=== PATIENT | female | born 1995 | race African-American/Black ===

== ENCOUNTER 2020-05-30 16:16 | Observation (INO) | payer OTHER, SELFPAY ==
[2020-05-30] VITALS (8 sets, daily range): BP systolic 99–138; BP diastolic 51–79; PULSE 71–96; RESP 16–18; TEMP 37; O2SAT 99–100; BMI 32.1
--- NOTE | 2020-05-30 16:29 | ED.NAVMDI ---
HPI - Nausea/Vomiting/Diarrhea General Chief complaint: Nausea/Vomiting/Diarrhea Stated complaint: n/v, 9 weeks Time Seen by Provider: 05/30/20 16:29 Source: patient and family Mode of arrival: ambulatory Limitations: no limitations History of Present Illness HPI Narrative: Patient is a 24-year-old G2, P1 currently 9 weeks who presents for evaluation nausea and vomiting. Patient reports that she had hyperemesis with her first throughout all of , and states she has been unable to tolerate oral intake for over a week. She reports headache, feeling weak and nauseated. She denies abdominal pain, vaginal bleeding, loss of fluids. No vaginal or abdominal cramping. No back pain, no dysuria or hematuria. Patient is supposed to see Dr. Allan tomorrow. She has not established care for this yet. Related Data Allergies Allergy/AdvReac Type Severity Reaction Status Date / Time No Known Allergies Allergy Unverified 04/27/20 13:21 Review of Systems Review of Systems: Narrative: CONSTITUTIONAL: Denies fever, chills, or sweats. EYES: Denies visual changes, redness, or discharge. ENT: Denies rhinorrhea, congestion, sore throat, or otalgia. CARDIOVASCULAR: Denies chest pain, palpitations, or edema. RESPIRATORY: Denies cough or dyspnea. GASTROINTESTINAL: Denies abdominal pain, reports nausea and vomiting, denies diarrhea GENITOURINARY: Denies dysuria or hematuria. SKIN: Denies rash or itching. MUSCULOSKELETAL: Denies back pain, joint pain, or myalgia. NEUROLOGIC: Denies headache, numbness, reports feeling diffusely weak PMFSH Past Medical History Medical History (Updated 05/30/20 @ 18:49 by Raquel Oneal MD) Nausea and vomiting during Surgical History Surgical History (Updated 05/30/20 @ 16:58 by aRquel Oneal MD) No pertinent past surgical history Social History Social History (Updated 05/30/20 @ 16:58 by Raquel Oneal MD) Smoking status: Never smoker Alcohol intake: never Substance use: never Living arrangements: with family Gender identity (if verbalized by the patient): Female Exam Narrative: Exam Narrative: GENERAL: Awake, alert, conversant HEAD: Normocephalic, atraumatic. EYES: PERRLA and EOMI. ENT: Nares clear, no rhinorrhea or epistaxis. Mucous membranes moist. NECK: Supple. CHEST: No respiratory distress, breathing even and non labored HEART: Regular rate, sinus rhythm ABDOMEN:Non distended, non tender EXTREMITIES: Normal range of motion. No edema. SKIN: Warm, dry, no rash. NEURO:No focal deficits. Alert and oriented x3 Course Vital Signs Vital signs: Vital Signs Temperature 37.0 C 05/30/20 16:22 Pulse Rate 96 05/30/20 16:22 Respiratory Rate 16 05/30/20 16:22 Blood Pressure 138/79 05/30/20 16:22 Pulse Oximetry 100 05/30/20 16:22 Temperature 37.0 C 05/30/20 16:22 Pulse Rate 96 05/30/20 16:22 Respiratory Rate 16 05/30/20 16:22 Blood Pressure 138/79 05/30/20 16:22 Pulse Oximetry 100 05/30/20 16:22 MDM - Nausea/Vomiting/Diarrhea MDM Narrative Medical decision making narrative: Patient presented for evaluation of nausea and vomiting in first trimester . Patient states she did experience hyperemesis throughout her second . The time of initial assessment, ABCs are intact and vital signs are stable. Patient is not having any pain, vaginal bleeding or loss of fluids. Bedside ultrasound demonstrated heart rate of 167. Vickery-rump length measuring 9 weeks 4 days. IV access obtained and labs are drawn. Patient was given IV fluids as well as IV dextrose and saline, Pepcid, Benadryl and Reglan. Patient continued to have nausea and vomiting and then was given Zofran. Patient labs notable for hypokalemia, mild transaminitis, mild elevation in bilirubin all which can be seen in the setting of a dehydrated state. Patient has what looks like asymptomatic bacteriuria on her urinaly
[2020-05-30] MEDS: diphenhydrAMINE HCl INJ 50 MG/ML VIAL 25 MG IV PUSH (16:50)
[2020-05-30] MEDS: SODIUM CHLORIDE 0.9% IV 1,000 ML 999 ML IV CONT (16:50)
[2020-05-30] MEDS: METOCLOPRAMIDE HCL INJ 10 MG/2 ML VIAL IV PUSH (16:50)
[2020-05-30 16:56] LABS: Basophils Percent Auto 0.3 % (0.2-1.2); Eosinophils Absolute Auto 0.1 K/mm3 (0-0.3); Eosinophils Percent Auto 0.9 % (0-4.4); Hematocrit 40.1 % (37.0-47.0); Hemoglobin 14.5 g/dL (12.0-15.0); Immature Granulocyte Absolute 0.01 K/mm3 (0.00-0.031); Immature Granulocyte Percent A 0.1 % (0-0.5); Lymphocytes Absolute Auto 1.53 K/mm3 (0.9-3.2); Lymphocytes Percent Auto 22.2 % (18.3-44.2); Mean Corpuscular HGB Conc 36.2 g/dl (32-36); Mean Corpuscular Hemoglobin 30.7 pg (26-34); Mean Corpuscular Volume 84.8 fl (80-100); Mean Platelet Volume 10.1 fl (7.4-10.4); Monocytes Absolute Auto 0.6 K/mm3 (0.1-0.6); Monocytes Percent Auto 8.6 % (2.6-8.5); Neutrophils Absolute Auto 4.7 K/mm3 (1.3-6.7); Neutrophils Percent Auto 67.9 % (45.5-73.1); Platelet Count Result 251 k/mm3 (150-375); Red Blood Count 4.73 M/mm3 (4.2-5.4); White Blood Count 6.9 K/mm3 (4.5-10.0)
[2020-05-30 17:01] LABS: Add Urine Microscopic? YES; Appearance Urine Clear (Clear); Bacteria Urine 3+ /hpf; Bilirubin Urine 1+ (Negative); Blood Urine Negative (Negative); Color Urine Amber (Yellow); Glucose Urine UA Negative (Negative); Ketones Urine 1+ mg/dL (Negative); Leukocyte Esterase Ur Trace LEU/UL (Negative); Mucus Urine Few /lpf; Nitrate Urine Negative (Negative); Protein Urine 1+ mg/dL (Negative); RBC Urine 0-2 /hpf (0-2); Specific Grav Ur 1.025 (1.001-1.035); Squamous Epithelial Cell Urine Few /hpf (Few)
[2020-05-30 17:07] LABS: Alanine Aminotransferase 48 U/L (4-35); Albumin Level 4.6 g/dL (3.5-5.1); Alkaline Phosphatase 51 U/L (38-126); Anion Gap 12 mmol/L (8-16); Aspartate Amino Transferase 41 U/L (14-36); Bilirubin,Total 1.7 mg/dL (0.2-1.3); Blood Urea Nitrogen 7 mg/dL (7-17); Calcium 9.8 mg/dL (8.4-10.2); Carbon Dioxide 25 mmol/L (22-30); Chloride 98 mmol/L (98-107); Estimated CRCL calculation 137 ml/min; Estimated Glomerular Filt Rate > 60; Glucose 94 mg/dL (65-105); Lipase 136 U/L (23-300); Sodium 135 mmol/L (137-145)
[2020-05-30] MEDS: DEXTROSE 5%/0.45% SOD CHL 1,000 ML 100 ML IV CONT (17:07)
[2020-05-30] MEDS: FAMOTIDINE 20 MG/2 ML VIAL IV PUSH (17:37)
[2020-05-30] MEDS: POTASSIUM CHLORIDE 20 MEQ PACKET (FOR LIQUID) 40 MEQ PO (17:59)
[2020-05-30] MEDS: ONDANSETRON INJ 4 MG/2 ML VIAL IV PUSH (18:24)
[2020-05-30] MEDS: DEXTROSE 5%/LACTATED RINGERS 1,000 ML 125 ML IV CONT (21:11)
[2020-05-30 21:23] LABS: Add Urine Microscopic? YES; Appearance Urine Cloudy (Clear); Bacteria Urine 2+ /hpf; Bilirubin Urine Negative (Negative); Blood Urine Negative (Negative); Color Urine Yellow (Yellow); Glucose Urine UA 3+ mg/dL (Negative); Ketones Urine Negative (Negative); Leukocyte Esterase Ur Negative LEU/UL (NEGATIVE); Nitrate Urine Negative (Negative); Protein Urine Negative (Negative); RBC Urine 0-2 /hpf (0-2); Specific Grav Ur 1.008 (1.001-1.035); Squamous Epithelial Cell Urine Occasional /hpf (Few); Urobilinogen Urine Negative mg/dL (<2.0); WBC Urine 0-3 /hpf (0-3)
--- NOTE | 2020-05-30 21:45 | OBADM ---
This patient, Zeina Hayes, admitted to the OB room OB Post 116 for observation. Patient/family oriented to hospital policies and general routines including ID bracelet, bed and alarms, visiting hours, pain management, procedures, bathroom and other care routines, personal items, smoking policy, room service/diet, and visiting hours. Patient/Family are encouraged to report perceived risks to care and to ask questions if they do not understand what they are told or what they should do.
[2020-05-30] MEDS: PROMETHAZINE HCL 25 MG/ML AMPUL IM (23:50)
[2020-05-31] MEDS: DEXTROSE 5%/LACTATED RINGERS 1,000 ML 125 ML IV CONT ×3 (05:07→20:58)
[2020-05-31 05:09] VITALS: BP 86/49; PULSE 71
[2020-05-31 05:10] VITALS: BP 105/63; PULSE 64
[2020-05-31] MEDS: PROMETHAZINE HCL 25 MG/ML AMPUL IM ×2 (07:12→14:42)
--- NOTE | 2020-05-31 10:38 | PC.NURSE ---
1035--Pt. has eaten 1/2 piece of toast and states she is feeling okay right now.
--- NOTE | 2020-05-31 13:41 | PM.IMHP ---
H&P: HPI History of Present Illness Date/Time: 05/31/20 13:41 Chief complaint: Hyperemesis gravidarum, transaminitis Narrative: Zeina Hayes is a 24 year old female here through ER last pm with persistent n/v and inability to keep food or fluids down. Given 2 L fluids, pepcid, reglan, zofran, and no relief. Admitted and given iv fluids with vitamins, phenergan on schedule and zofran as needed. Will attempt to advance diet. [facility] Past Medical History Medical History (Updated 05/31/20 @ 13:45 by Tiana Ramos MD) Nausea and vomiting during (normal spontaneous vaginal delivery) 2018 Surgical History Surgical History (Updated 05/30/20 @ 16:58 by Raquel Oneal MD) No pertinent past surgical history Social History Social History (Updated 05/30/20 @ 16:58 by Raquel Oneal MD) Smoking status: Never smoker Alcohol intake: never Substance use: never Living arrangements: with family Gender identity (if verbalized by the patient): Female Meds Home Medications and Allergies Home Medications Medication Instructions Recorded Confirmed Type metoclopramide HCl [Reglan] 10 mg PO Q6H PRN #20 tablet 05/30/20 Rx nitrofurantoin monohyd/m-cryst 100 mg PO Q12H 5 Days #10 cap 05/30/20 Rx [Macrobid] Allergies Allergy/AdvReac Type Severity Reaction Status Date / Time No Known Allergies Allergy Unverified 04/27/20 13:21 Vital Signs Vital Signs - 24 hr 05/30/20 16:22 05/30/20 19:22 05/30/20 20:04 Temperature 98.6 F Pulse Rate 96 90 82 Respiratory Rate 16 18 Blood Pressure 138/79 116/71 99/51 L Pulse Oximetry 100 99 05/30/20 20:16 05/30/20 20:31 05/30/20 20:46 Temperature Pulse Rate 76 71 76 Respiratory Rate Blood Pressure 111/57 L 102/61 106/68 Pulse Oximetry 05/30/20 21:01 05/30/20 23:54 05/31/20 05:09 Temperature Pulse Rate 79 76 71 Respiratory Rate Blood Pressure 107/61 103/58 L 86/49 L Pulse Oximetry 05/31/20 05:10 Temperature Pulse Rate 64 Respiratory Rate Blood Pressure 105/63 Pulse Oximetry Exam Const: General: no acute distress GI: GI Palp: Yes Soft to palpation and No Tenderness to palpation present (GI) Percussion: Yes normal to percussion Other: +FHT's on bedside u/s in ER H&P: Results Labs Labs: Short CBC 05/30/20 Range/Units 16:46 WBC 6.9 (4.5-10.0) K/mm3 Hgb 14.5 (12.0-15.0) g/dL Hct 40.1 (37.0-47.0) % Plt Count 251 (150-375) k/mm3 BMP 05/30/20 16:46 Sodium 135 L Potassium 3.0 L Chloride 98 Carbon Dioxide 25 BUN 7 Creatinine 0.60 L Glucose 94 Calcium 9.8 Liver Function 05/30/20 Range/Units 16:46 Total Bilirubin 1.7 H (0.2-1.3) mg/dL AST 41 H (14-36) U/L ALT 48 H (4-35) U/L Alkaline Phosphatase 51 (38-126) U/L Albumin 4.6 (3.5-5.1) g/dL Urine 05/30/20 05/30/20 Range/Units 16:46 21:10 Urine Color [place] Yellow (Yellow) Urine Appearance Clear Cloudy H (Clear) Urine pH 6.0 6.0 (5.0-9.0) Ur Specific [place] 1.025 1.008 (1.001-1.035) Urine Protein 1+ H Negative (Negative) mg/dL Urine Glucose (UA) Negative 3+ H (Negative) mg/dL Assessment and Plan Assessment and plan (1) Nausea and vomiting during : Code(s): O21.9 - Vomiting of , unspecified Status: Acute Assessment and Plan: Plan to advance diet. Once tolerating, will dc home.
[2020-05-31] MEDS: ONDANSETRON INJ 4 MG/2 ML VIAL IV PUSH ×2 (14:41→19:15)
[2020-05-31 17:16] VITALS: BP 108/48; PULSE 84
--- NOTE | 2020-05-31 18:07 | PC.NURSE ---
1800--Pt. ate 1/4 flatbread sandwich and no emesis noted.
--- NOTE | 2020-05-31 21:05 | PC.NURSE ---
2101- called Dr. Ramos. pt requesting to d/c home. pt was able to eat dinner and keep it down. ok to d/c home with RX for phenergan 25 mg po q8 #30 with 1 Refill and zofran 4 mg prn #30 no refills. pt to reschedule appt in office to see Dr. Allan.
== END 2020-05-31 21:55 | disposition home or self-care (01) ==
LOC: ANHED 18:53 → ANHOBPP 19:23
PROVIDERS: Admitting Provider Obstetrics & Gynecology Gynecology; Emergency Provider Emergency Medicine; Visit Provider Obstetrics & Gynecology Gynecology
DX: O21.9 Vomiting of pregnancy, unspecified (principal); O23.41 Unspecified infection of urinary tract in pregnancy, first trimester; R82.71 Bacteriuria; O99.281 Endocrine, nutritional and metabolic diseases complicating pregnancy, first trimester; E87.6 Hypokalemia; Z3A.09 9 weeks gestation of pregnancy
CPT/HCPCS: 36415; 80053; 81001; 83690; 85025; 87086; 87088; 96361; 96365; 96372; 96374; 96375; 96376; 99285; A9270; G0378; J1200; J2405; J2550; J2765; J3411; J3475; J7030; J7121

== ENCOUNTER → 2020-06-10 10:27 | Outpatient (CLI) | payer OTHER, SELFPAY ==
--- NOTE | ~2020-06-10 | US_ITS ---
EXAMINATION: US OB <= 14 weeks fetus DATE: 06/10/2020 10:49 INDICATION: First trimester dating TECHNIQUE: Real-time pelvic transabdominal and transvaginal ultrasound was performed. COMPARISON: None. FINDINGS: The uterus measures 14.2 x 7.9 x 9.2 cm. There is an intrauterine gestational sac. A yolk sac is identified. heart motion is identified measuring 159 beats per minute (bpm) by M-mode Do ppler. The crown rump length measures 5 cm , which correlates with an estimated gestational age of 11 weeks and 5 day(s) (+/-) 7 day(s). The right ovary measures 5.8 x 2.4 x 4.5 cm. The left ovary measures 3.1 x 1.6 x 2.3 cm. There is nor mal vascular flow in the ovaries. There is no free fluid in the pelvis. IMPRESSION: 1. Live intrauterine with an estimated gestational age of 11 weeks and 5 day(s) (+/-) 7 day (s) and an estimated delivery date of 12/25/2020. Reviewed, dictated and finalized at location B. IMPRESSION: 1. Live intrauterine with an estimated gestational age of 11 weeks an d 5 day(s) (+/-) 7 day(s) and an estimated delivery date of 12/25/2020.
== END ==
PROVIDERS: Visit Provider Obstetrics & Gynecology
DX: Z34.92 Encounter for supervision of normal pregnancy, unspecified, second trimester (principal)
CPT/HCPCS: 76801

== ENCOUNTER → 2020-07-27 15:28 | Outpatient (CLI) | payer OTHER, SELFPAY ==
--- NOTE | ~2020-07-27 | US_ITS ---
EXAMINATION: US OB >= 14 weeks Fetus DATE: 07/27/2020 16:15 INDICATION: survey TECHNIQUE: Multiple obstetric sonographic images performed. FINDINGS: Comparison to 06/10/2020 There is a single living fetus in vertex presentation. The placenta is anterior without placenta pre via. Placental margin is 4.3 cm to the cervix. Amniotic fluid volume is normal. cardiac activity and movement is noted with a heart rate of 158 beats per minute. The following anatomy was identified as normal: 4 chamber heart 3 vessel cord cord insertion kidneys urinary bladder stomach spine diaphragm ventricles cisterna magna cerebellum survey limited for evaluation of upper lip. The following biometric data were obtained: BPD: 41mm corresponds to gestational age 18 weeks 2 days. Head circumference: 156 mm corresponds to gestational age 18 weeks 3 days. Abdominal circumference: 127 mm corresponds to gestational age 18 weeks 2 days. Femur length: 26 mm corresponds to gestational age 17 weeks 6 days. Head circumference to abdominal circumference ratio: 1.22 (normal range for expected gestational age is 1.08-1.27). Estimated weight: 225 grams +/- 34 grams using Hadlock method. IMPRESSION: 1: Single living intrauterine with an estimated gestational age of 18weeks 3days by initial ultrasound measurements, with an EDC of 12/25/2020 in vertex presentation. 2. survey limited for evaluation of upper lip. Recommend attention to this on subsequent exami nation. Remainder of the survey is unremarkable. Reviewed, dictated and finalized at location A. IMPRESSION: 1: Single living intrauterine with an estimated gestational age of 18 weeks 3days by initial ultrasound measurements, with an EDC of 12/25/2020 in chari fredy presentation. 2. survey limited for evaluation of upper lip. Recommend attention to th is on subsequent examination. Remainder of the survey is unremarkable.
== END ==
PROVIDERS: Visit Provider Obstetrics & Gynecology
DX: Z34.92 Encounter for supervision of normal pregnancy, unspecified, second trimester (principal); Z3A.18 18 weeks gestation of pregnancy
CPT/HCPCS: 76805

== ENCOUNTER → 2020-10-25 16:24 | Outpatient (CLI) | payer BC, SELFPAY ==
--- NOTE | ~2020-10-25 | US_ITS ---
US OB follow up DATE: 10/25/2020 17:56 INDICATION: Large for gestational age TECHNIQUE: Real-time imaging and Doppler analysis COMPARISON: 07/27/2020 obstetrical ultrasound FINDINGS: Live mcknight intrauterine gestation, fetus in breech presentation. The placenta is anteri or. The lower margin is 4.8 cm above the internal os. Amniotic fluid index measures 22.9 cm. heart rate measures 146 bpm Biparietal diameter 8.08 cm; 32 weeks 3 days Head circumference 29.70 cm; 32 weeks 6 days Abdominal circumference 27.81 cm; 31 weeks 6 days Femur length 5.90 cm; 30 weeks 5 days Composite age by Hadlock formula is 32 weeks +/- 2 weeks 2 days; SAHIL by the current examination would be 12/20/2020, compared to 12/26/2020 by LMP and 12/25/2020 according to the 07/27/2020 obstetrical ult rasound examination. Estimated weight is 1818 +/- 73 g Estimate weight-GP: 56.8% Femur length/BPD 73.07, within normal range of 71.0-87.0 Head circumference/abdominal circumference 1.07, within normal range of 0.96-1.14 Femur length/abdominal circumference 21.23, within normal range of 20.00-24.00 Femur length/chest 19.88, within normal range of 19.10-21.30 IMPRESSION: Normal interval growth Amniotic fluid index measures 22.92 cm Reviewed, dictated and finalized at Location A. Reviewed, dictated and finalized at location A. [employer] SUPPORT ANALYST
== END ==
PROVIDERS: Visit Provider Obstetrics & Gynecology Gynecology
DX: O36.63X0 Maternal care for excessive fetal growth, third trimester, not applicable or unspecified (principal); Z3A.00 Weeks of gestation of pregnancy not specified
CPT/HCPCS: 76816

== ENCOUNTER 2020-12-18 06:11 | Inpatient (IN) | payer BC, SELFPAY ==
[2020-12-18] VITALS (157 sets, daily range): BP systolic 95–152; BP diastolic 38–109; PULSE 81–204; RESP 20; TEMP 36.3–37.3; O2SAT 81–100; BMI 35.6
[2020-12-18] MEDS: LACTATED RINGERS 1,000 ML 125 ML IV CONT ×4 (06:57→16:32)
[2020-12-18] MEDS: AMPICILLIN 2 GM/NS 100 ML 2 GM/100 ML BAG IVPB (06:59)
[2020-12-18] MEDS: OXYTOCIN 30 UNITS/NS 500 ML 30 UNITS/500 ML BAG IV CONT (07:03)
[2020-12-18 07:15] LABS: Basophils Percent Auto 0.1 % (0.2-1.2); Eosinophils Percent Auto 0.4 % (0-4.4); Hematocrit 29.2 % (37.0-47.0); Hemoglobin 9.6 g/dL (12.0-15.0); Immature Granulocyte Absolute 0.06 K/mm3 (0.00-0.031); Immature Granulocyte Percent A 0.6 % (0-0.5); Lymphocytes Absolute Auto 2.07 K/mm3 (0.9-3.2); Lymphocytes Percent Auto 22.2 % (18.3-44.2); Mean Corpuscular HGB Conc 32.9 g/dl (32-36); Mean Corpuscular Hemoglobin 28.4 pg (26-34); Mean Corpuscular Volume 86.4 fl (80-100); Mean Platelet Volume 10.7 fl (7.4-10.4); Monocytes Absolute Auto 0.8 K/mm3 (0.1-0.6); Monocytes Percent Auto 8.3 % (2.6-8.5); Neutrophils Absolute Auto 6.4 K/mm3 (1.3-6.7); Neutrophils Percent Auto 68.4 % (45.5-73.1); Platelet Count Result 203 k/mm3 (150-375); Red Blood Count 3.38 M/mm3 (4.2-5.4); Red Cell Distribution Width 13.7 % (11.5-14.5); White Blood Count 9.3 K/mm3 (4.5-10.0)
--- NOTE | 2020-12-18 09:29 | WPDANESEPP ---
Anes - Eval Pre Procedure Procedure: labor epidural Date/Time: 12/18/20 09:29 Preop Diagnosis: pain during labor Pre Op Diagnosis: Induction of Labor Patient Data Age: 25 Gender: F Height: 5 ft 7 in Weight: 103.2 kg Last Vital Signs Temp 37.3 C 12/18/20 07:01 Pulse 96 12/18/20 09:01 BP 131/67 12/18/20 09:01 Allergies Allergy/AdvReac Type Severity Reaction Status Date / Time No Known Allergies Allergy Unverified 04/27/20 13:21 Home Medications Medication Instructions Recorded Confirmed Type PNV cmb#95-ferrous fumarate-FA 1 tablet PO DAILY 12/07/20 12/18/20 History [] ergocalciferol (vitamin D2) 1,250 mcg PO WEEKLY 12/07/20 12/18/20 History [Vitamin D2] Laboratory Tests 12/18/20 12/18/20 12/18/20 06:40 06:40 06:40 WBC 9.3 K/mm3 K/mm3 (4.5-10.0) RBC 3.38 M/mm3 L M/mm3 (4.2-5.4) Hgb 9.6 g/dL L D g/dL (12.0-15.0) Hct 29.2 % L % (37.0-47.0) MCV 86.4 fl fl (80-100) MCH 28.4 pg pg (26-34) MCHC 32.9 g/dl g/dl (32-36) RDW 13.7 % % (11.5-14.5) Plt Count 203 k/mm3 k/mm3 (150-375) MPV 10.7 fl H fl (7.4-10.4) Immature Gran % (Auto) 0.6 % H % (0-0.5) Neut % (Auto) 68.4 % % (45.5-73.1) Lymph % (Auto) 22.2 % % (18.3-44.2) [place] % (Auto) 8.3 % % (2.6-8.5) Eos % (Auto) 0.4 % % (0-4.4) Baso % (Auto) 0.1 % L % (0.2-1.2) Lymph # (Auto) 2.07 K/mm3 K/mm3 (0.9-3.2) [place] # (Auto) 0.8 K/mm3 H K/mm3 (0.1-0.6) Eos # (Auto) 0.0 K/mm3 K/mm3 (0-0.3) Baso # (Auto) 0.0 K/mm3 K/mm3 (0.0-0.1) Abs Immat Gran (auto) 0.06 K/mm3 H K/mm3 (0.00-0.031) Absolute Neuts (auto) 6.4 K/mm3 K/mm3 (1.3-6.7) Absolute Nucleated RBC 0.0 K/mm3 K/mm3 (0.0-0.012) Nucleated RBC % 0.0 % % (0.0-0.2) RPR Pending Blood Type B Positive Antibody Screen Negative : gestational age (SAHIL 12/25/20) Patient hx anesthesia problems: none Family hx anesthesia problems: none PMFSH Past Medical History Medical History (Updated 05/31/20 @ 13:45 by Tiana Ramos MD) Nausea and vomiting during (normal spontaneous vaginal delivery) 2018 Surgical History Surgical History (Updated 05/30/20 @ 16:58 by Raquel Oneal MD) No pertinent past surgical history Family History Family History (Updated 12/07/20 @ 15:00 by Dustin Mondragon RN) Father Hypertension Diabetes mellitus Social History Social History (Updated 05/30/20 @ 16:58 by Raquel Oneal MD) Smoking status: Never smoker Second hand tobacco smoke exposure: No Alcohol intake: never Substance use: never Gender identity (if verbalized by the patient): Female Spiritual care concerns: No Exam Day of Procedure 12/18/20 09:29
--- NOTE | 2020-12-18 09:30 | WPDANESEPP ---
Anes - Eval Pre Procedure Procedure: labor epidural Date/Time: 12/18/20 09:30 Preop Diagnosis: pain during labor Pre Op Diagnosis: Induction of Labor Patient Data Age: 25 Gender: F Height: 5 ft 7 in Weight: 103.2 kg Last Vital Signs Temp 37.3 C 12/18/20 07:01 Pulse 96 12/18/20 09:01 BP 131/67 12/18/20 09:01 Allergies Allergy/AdvReac Type Severity Reaction Status Date / Time No Known Allergies Allergy Unverified 04/27/20 13:21 Home Medications Medication Instructions Recorded Confirmed Type PNV cmb#95-ferrous fumarate-FA 1 tablet PO DAILY 12/07/20 12/18/20 History [] ergocalciferol (vitamin D2) 1,250 mcg PO WEEKLY 12/07/20 12/18/20 History [Vitamin D2] Laboratory Tests 12/18/20 12/18/20 12/18/20 06:40 06:40 06:40 WBC 9.3 K/mm3 K/mm3 (4.5-10.0) RBC 3.38 M/mm3 L M/mm3 (4.2-5.4) Hgb 9.6 g/dL L D g/dL (12.0-15.0) Hct 29.2 % L % (37.0-47.0) MCV 86.4 fl fl (80-100) MCH 28.4 pg pg (26-34) MCHC 32.9 g/dl g/dl (32-36) RDW 13.7 % % (11.5-14.5) Plt Count 203 k/mm3 k/mm3 (150-375) MPV 10.7 fl H fl (7.4-10.4) Immature Gran % (Auto) 0.6 % H % (0-0.5) Neut % (Auto) 68.4 % % (45.5-73.1) Lymph % (Auto) 22.2 % % (18.3-44.2) [place] % (Auto) 8.3 % % (2.6-8.5) Eos % (Auto) 0.4 % % (0-4.4) Baso % (Auto) 0.1 % L % (0.2-1.2) Lymph # (Auto) 2.07 K/mm3 K/mm3 (0.9-3.2) [place] # (Auto) 0.8 K/mm3 H K/mm3 (0.1-0.6) Eos # (Auto) 0.0 K/mm3 K/mm3 (0-0.3) Baso # (Auto) 0.0 K/mm3 K/mm3 (0.0-0.1) Abs Immat Gran (auto) 0.06 K/mm3 H K/mm3 (0.00-0.031) Absolute Neuts (auto) 6.4 K/mm3 K/mm3 (1.3-6.7) Absolute Nucleated RBC 0.0 K/mm3 K/mm3 (0.0-0.012) Nucleated RBC % 0.0 % % (0.0-0.2) RPR Pending Blood Type B Positive Antibody Screen Negative : gestational age (SAHIL 12/25/20) Patient hx anesthesia problems: none Family hx anesthesia problems: none PMFSH Past Medical History Medical History Nausea and vomiting during (normal spontaneous vaginal delivery) 2018 Surgical History Surgical History No pertinent past surgical history Family History Family History Father Hypertension Diabetes mellitus Social History Social History Smoking status: Never smoker Second hand tobacco smoke exposure: No Alcohol intake: never Substance use: never Gender identity (if verbalized by the patient): Female Spiritual care concerns: No Exam Day of Procedure 12/18/20 09:30 Patient weight: obese Heart: regular rate and rhythm Neurological: alert and oriented
[2020-12-18] MEDS: AMPICILLIN 1 GM/NS 50 ML 1 GM/50 ML BAG IVPB ×3 (10:58→19:29)
--- NOTE | 2020-12-18 11:33 | WPDOBADMIT ---
Obstetrics - Admit Note Admission Note: AROm 2/-2 blood tinged fluid. record reviewed. No pertinent additions to the history and/or any subsequent changes in the physical findings that are not consistent with the expected course of the were found. Additions to the history and/or subsequent changes in the physical findings follow. None.
--- NOTE | 2020-12-18 21:09 | PM.OBPRVD ---
OB - Delivery Note Procedure Delivery date: 12/18/20 Procedure: events: Labor Induction Intrapartal events: None Induction method: AROM and per pitocin protocol Delivery monitor: external FHT and external uterine Route of delivery: Indication for instrumentation: nonreassuring FHR tracing Laceration Description: Perineal - 2nd Degree Delivery repair: vicryl Quantitative Blood Loss (ml): 160 Anesthesia type: Epidural Disposition: floor [place] Baby Date of : 12/18/20 Time of : 20:54 Weeks of gestation at delivery: 39 gender: Female Weight (pounds): 6 Weight (ounces): 13 presentation: vertex position: Left Occiput Anterior Placenta delivery description: Spontaneous cord vessel description: 3 Vessels score one minute: 8 score five minutes: 9
[2020-12-18] MEDS: ACETAMINOPHEN 325 MG TABLET 650 MG PO (21:15)
[2020-12-18] MEDS: OXYTOCIN 30 UNITS/NS 500 ML 30 UNITS/500 ML BAG 125 UNITS IV CONT (21:18)
--- NOTE | 2020-12-18 23:26 | PC.NURSE ---
Patient transferred to post room #286 via wheelchair. Support person present. Oriented to unit, room, information board, rooming in, admission packet and security measures. Patient verbalizes understanding.
[2020-12-19] MEDS: IBUPROFEN 600 MG TABLET PO ×3 (00:52→15:31)
[2020-12-19] MEDS: LANOLIN (LANSINOH) 7.5 GM CREAM 1 APPLIC TOPICAL (02:21)
[2020-12-19 05:30] VITALS: BP 115/64; PULSE 96; RESP 18; TEMP 36.6; O2SAT 99
[2020-12-19 05:35] LABS: Hematocrit 29.5 % (37.0-47.0); Hemoglobin 9.8 g/dL (12.0-15.0)
[2020-12-19 07:03] LABS: Rapid Plasma Reagin Non-Reactive (NonReactive)
[2020-12-19] MEDS: MULTIVIT/MIN/PREN/FOL AC/IRON TABLET 1 TAB PO (07:37)
[2020-12-19] MEDS: POLYSACCHARIDE IRON COMPLEX 150 MG CAPSULE PO ×2 (07:37→15:31)
[2020-12-19] MEDS: DOCUSATE SODIUM 100 MG CAPSULE PO ×2 (07:37→15:31)
[2020-12-19 08:00] VITALS: BP 129/67; PULSE 99; RESP 18; TEMP 36.7; O2SAT 100
--- NOTE | 2020-12-19 09:10 | PM.OBPNVD ---
OB - PN: Subj Subjective Date/time seen: 12/19/20 09:10 Patient comments: no complaints and pain well controlled baby status: doing well OB - PN: Obj Data Labs CBC & Chem 7: 12/19/20 05:26 Labs: Laboratory Results - last 24 hr 12/18/20 12/19/20 06:40 05:26 Hgb 9.8 L Hct 29.5 L RPR Non-reactive OB - PN A/P Plan day: 1 Plan: routine care, discharge home, follow up 6 weeks and other (plans mirena ) Time Spent With Patient Time: Total time spent is greater than 50% in coordination of care (as documented) at patient's floor/unit and/or counseling patient: Exam : Bimanual exam- vagina & uterus: other (Uterus firm, nt @U)
--- NOTE | 2020-12-19 12:05 | PC.NURSE ---
Mother called out for assist with feeding. Consulted with patient, reports has fed well since . Mother has nipple discomfort with latch during first part of the feeding. Reviewed feeding cues, frequencies, duration of feedings, feeding elimination flow sheet, and signs of adequate intake. Demonstrated stimulation techniques to wake for feeding. Assisted with to breast. Reviewed positioning/alignment in football, holding breast in C hold and guided asymmetrical latch on. Infant was able to latch within a few attempts. nursed eagerly, with steady draws and frequent swallowing noted. Latch was shallow. Reviewed signs of a correct latch, effective nursing and suck swallow ratio. Infant was able to maintain latch. Mother reported tenderness at times, had slipped to shallow latch. Demonstrated how to adjust latch more deeply while feeding. Mother quickly reports she can feel infant is latched more deeply and has minimal tenderness. Suggested to stimulate while feeding to keep awake and nursing effectively for increased stimulation and increased intake. Instructed mother to call out for RN assistance if she is unable to latch infant for feeding or she has discomfort with nursing. Instructed feeding should be initiated three hours from start of last feeding or if feeding cues are noted before. Mother voiced understanding of information shared.
[2020-12-19 12:29] VITALS: BP 111/65; PULSE 89; RESP 18; TEMP 36.3; O2SAT 98
--- NOTE | 2020-12-19 14:04 | WPDANLDPN2 ---
Anes-Prog Note L&D Date/Time: 12/19/20 14:04 Comfortable throughout: labor and delivery Neuraxial method: epidural Epidural/Spinal procedure site: clean & non-tender Neuro status: Neuro function grossly intact. Cardiovascular status: normal Respiratory status: normal Airway patency: baseline Mental status: baseline Post-Op hydration status: normal Vital Signs: Last Vital Signs Temp 97.4 F L 12/19/20 12:29 Pulse 89 12/19/20 12:29 Resp 18 12/19/20 12:29 BP 111/65 12/19/20 12:29 Pulse Ox 98 12/19/20 12:29 Pain score (VAS): 0/10 I/O: Intake & Output 12/18/20 12/19/20 12/19/20 23:59 07:59 15:59 Intake Total 2550 Output Total 153 Balance 2397 Post-procedural complaints: none Patient feedback: Patient satisfied with anesthetic care.
[2020-12-19 15:25] VITALS: BP 115/69; PULSE 91; RESP 18; TEMP 36.8
[2020-12-19 22:00] VITALS: BP 113/62; PULSE 78; PULSE 79; RESP 18; TEMP 36.4; O2SAT 99
[2020-12-20] MEDS: IBUPROFEN 600 MG TABLET PO (05:01)
--- NOTE | 2020-12-20 07:47 | PM.OBPNVD ---
OB - PN: Subj Subjective Date/time seen: 12/20/20 07:47 Interval history: stayed due to peds Patient comments: no complaints [place] baby status: doing well OB - PN: Obj Data Labs CBC & Chem 7: 12/19/20 05:26 OB - PN A/P Plan day: 2 Plan: routine care and discharge home Time Spent With Patient Time: Total time spent is greater than 50% in coordination of care (as documented) at patient's floor/unit and/or counseling patient: Exam : Bimanual exam- vagina & uterus: other (Uterus firm, nt @U)
[2020-12-20 07:55] VITALS: BP 101/66; PULSE 78; RESP 18; TEMP 36.8; O2SAT 99
[2020-12-20] MEDS: DOCUSATE SODIUM 100 MG CAPSULE PO (08:08)
[2020-12-20] MEDS: MULTIVIT/MIN/PREN/FOL AC/IRON TABLET 1 TAB PO (08:08)
[2020-12-20] MEDS: POLYSACCHARIDE IRON COMPLEX 150 MG CAPSULE PO (08:08)
--- NOTE | 2020-12-20 08:10 | PC.NURSE ---
Patient viewed the discharge video Mother & Baby Care, The First Two Weeks . Patient was given the opportunity and encouraged to ask questions. Patient verbalized understanding of information shared and has been given the mother/baby guide for home reference.
--- NOTE | 2020-12-20 08:30 | PC.NURSE ---
Consult with pt., mother reports is eagerly feeding she struggles with latch and tenderness on left breast. Mother has infant to breast in cradle position with shallow latch and chin to chest. When infant released latch nipple is rounded on top and flat to bottom. Discussed infant head position and shallow latch impacts deep latch and her tenderness. Assisted with appropriate positioning/alignment using cross cradle and alignment of infant in front of nipple. Infant eagerly latches on first attempt with long rhythmical draws and freq swallowing noted. Demonstrated how to adjust latch more deeply while feeding and how to assist with maintaining deep latch with continuing to hold breast in U hold Suggested to stimulate to keep nursing effectively for increased intake and to assist with maintaining deep latch. Mother quickly reports she can feel is latched more deeply and has minimal discomfort. Reviewed nipple care.
--- NOTE | 2020-12-20 11:15 | PC.NURSE ---
Mother is feeding as required and waking to feed if needed. Mother is able to independently latch, working with deeper latch and maintaining on left breast. Infant has had at least 8 effective feedings in the past 24 hours, and is currently meeting outcomes for weight, output, jaundice and feeding frequencies. Mother states she feels confident to continue effective at home. Reviewed transition to breast milk, signs of adequate intake, and engorgement/relief. Instructed to call ICP if intake/output less than required. Reviewed regular medications mother is taking. Information provided per Yamila. Reviewed community resources on the [facility] website and in the Mom/Baby guide. Information on outpatient services provided. Mother has no further questions at this time.
[2020-12-21 11:54] VITALS: BP 122/59; PULSE 99; RESP 20; TEMP 37.3; O2SAT 100
--- NOTE | 2021-01-09 02:04 | PM.OBDSVD ---
DS: Admitting Diagnosis Admitting Diagnosis Admitting Diagnosis: induction of labor DS: Discharge Diagnosis Discharge Diagnosis (1) (normal spontaneous vaginal delivery): Code(s): O80 - Encounter for full-term uncomplicated delivery Status: Acute OB - DS: Summary OB Procedures : Ultrasound OB Procedures Intrapartum: Spontaneous Vag Delivery OB Procedures: : None Peripartum Data Delivery Method: Natural Vaginal Laceration Description: Perineal - 2nd Degree complications: none Time Spent with Patient Time attestation: Total time spent providing and/or coordinating discharge services: DS: Data Data Completed and Pending Completed studies during hospitalization: Pending at discharge 12/19/20 08:08 Surgical [PTH] Routine Discharge Plan Discharge Attending physician on discharge: Trever Allan Discharging Clinician: Trever Allan Anticipated Discharge Date/Time: 12/20/20 07:48 Patient Disposition: Home, Self-Care Activity: may shower and pelvic rest Diet: regular Discharge Instructions: Education: Mom and Baby Guide Given to: Mother Follow-Up: Call your delivering provider's office for an appointment to be seen in: 6 Weeks Mom and baby should come to the [facility] for the follow-up appointment. Appointment Date/Time: December 21, 2020 at 11:00 am What to expect at your follow-up visit: Physical Assessment Call [phone] if you are unable to keep your appointment time. BREAST CARE: * Wear a snug supportive bra. * For engorgement discomfort: Breast Feeding: * Apply warm moist washcloths * Express milk as needed to relieve engorgement * Wear loose clothing * For sore nipples: * Identify correct latch-on * Apply warm moist washcloths before and after nursing * Air dry nipples after nursing * May apply Lansinoh cream to nipples EPISIOTOMY/PERINEAL CARE: * Until bleeding stops, use your mackenzie bottle after urinating * Change your pad frequently throughout the day * You may take sitz baths several times a day (fill your bathtub with warm water and soak for 20 minutes.) Do NOT bathe in the water * No tub baths until seen by your physician - You may shower ACTIVITY: * Rest as much as possible. * Do not exercise or lift anything heavier than your baby (such as laundry or other children.) * Avoid stairs or driving as much as possible. * Do not put anything into the vagina. No douching, tampons, or sexual activity until seen by physician. NOTIFY PHYSICIAN IF YOU HAVE ANY QUESTIONS OR IF ANY OF THE FOLLOWING SYMPTOMS OCCUR: * If your episiotomy or incision becomes red, swollen, or more painful than what you have experienced in the hospital. * If your vaginal bleeding becomes foul smelling. * If your vaginal bleeding becomes more heavy than a period or if your bleeding changes from pink to bright red. However, you may pass an occasional walnut-sized clot once or twice for the first week . * If you experience a sharp, shooting pain in you calves. * If you discover a hard, reddened area on your breast or if you experience flu-like symptoms. DIET: * Eat regular, well-balanced meals. * Drink plenty of fluids daily. If , drink to thirst. Stand Alone Forms: General Discharge Information Follow-up/Referrals: Trever Allan MD [Physician] - Discharge Medications: Continued ergocalciferol (vitamin D2) [Vitamin D2] 1,250 mcg (50,000 unit) Capsule 1,250 mcg PO WEEKLY RF: 0 PNV cmb#95-ferrous fumarate-FA [] 28 mg iron- 800 mcg Tablet 1 tablet PO DAILY RF: 0 Date of admission: 12/18/20 06:11 Admitting Provider: Trever Allan Attending physician on admission: Tiana Ramos Condition: Stable Health Concerns: Plans condoms until Mirena
== END 2020-12-20 11:30 | disposition home or self-care (01) | DRG 807 ==
LOC: ANHLDR 21:13 → ANHOB2 12-19 09:12 → ANHLDR 12-21 15:14 → ANHOB2 12-21 15:14
PROVIDERS: Admitting Provider Obstetrics & Gynecology; Visit Provider Obstetrics & Gynecology Gynecology
DX: O99.824 Streptococcus B carrier state complicating childbirth (principal); Z37.0 Single live birth; Z3A.39 39 weeks gestation of pregnancy; O36.8330 Maternal care for abnormalities of the fetal heart rate or rhythm, third trimester, not applicable or unspecified; O70.1 Second degree perineal laceration during delivery; O77.0 Labor and delivery complicated by meconium in amniotic fluid; O99.214 Obesity complicating childbirth; E66.9 Obesity, unspecified
CPT/HCPCS: 36415; 85014; 85018; 85025; 86592; 86850; 86900; 86901; 88307; A9270; J0290; J2590; J2795; J7120

== ENCOUNTER 2023-01-09 22:43 | Emergency (ER) | payer SELFPAY ==
[2023-01-09 22:45] VITALS: BP 141/81; PULSE 82; RESP 18; TEMP 36.5; O2SAT 100
--- NOTE | 2023-01-10 02:57 | PC.NURSE ---
no answer at triage
== END 2023-01-10 03:06 | disposition left against medical advice (07) ==
DX: S29.9XXA Unspecified injury of thorax, initial encounter (principal)
CPT/HCPCS: 99199

== ENCOUNTER 2023-01-10 10:02 | Emergency (ER) | payer OTHER, SELFPAY ==
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
[2023-01-10 10:08] VITALS: BP 138/87; PULSE 63; RESP 18; TEMP 36.9; O2SAT 100
--- NOTE | 2023-01-10 11:07 | ECG_ITS ---
Measurements Intervals [place] Rate: 75 P: 26 NH: 157 QRS: 6 QRSD: 81 T: 11 QT: 347 QTc: 389 Interpretive Statements SINUS RHYTHM VOLTAGE CRITERIA FOR LVH BORDERLINE ECG NO PREVIOUS ECG AVAILABLE FOR COMPARISON Electronically Signed On 01-11-2023 16:20:15 CDT by Angel Abraham M.D.
[2023-01-10] MEDS: ACETAMINOPHEN 325 MG TABLET 650 MG PO (11:20)
[2023-01-10 11:23] LABS: Basophils Percent Auto 0.4 % (0.2-1.2); Eosinophils Percent Auto 0.8 % (0-4.4); Hematocrit 43.3 % (37.0-47.0); Hemoglobin 14.5 g/dL (12.0-15.0); Lymphocytes Absolute Auto 1.79 K/mm3 (0.9-3.2); Lymphocytes Percent Auto 35.4 % (18.3-44.2); Mean Corpuscular HGB Conc 33.5 g/dl (32-36); Mean Corpuscular Volume 92.5 fl (80-100); Monocytes Absolute Auto 0.4 K/mm3 (0.1-0.6); Monocytes Percent Auto 6.9 % (2.6-8.5); Neutrophils Absolute Auto 2.9 K/mm3 (1.3-6.7); Neutrophils Percent Auto 56.5 % (45.5-73.1); Platelet Count Result 220 k/mm3 (150-375); Red Blood Count 4.68 M/mm3 (4.2-5.4); Red Cell Distribution Width 12.8 % (11.5-14.5); White Blood Count 5.1 K/mm3 (4.5-10.0)
--- NOTE | 2023-01-10 11:29 | PC.NURSE ---
Patient unable to urinate at this time.
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
[2023-01-10 11:34] LABS: Anion Gap 5 mmol/L (8-16); Blood Urea Nitrogen 15 mg/dL (7-17); Calcium 9.6 mg/dL (8.4-10.2); Carbon Dioxide 31 mmol/L (22-30); Chloride 103 mmol/L (98-107); Estimated CRCL calculation 99 ml/min; Estimated Glomerular Filt Rate > 60; Glucose 92 mg/dL (65-110); Sodium 139 mmol/L (137-145)
--- NOTE | 2023-01-10 12:54 | PC.NURSE ---
cat scan called and informed of patient negative bedside
[2023-01-10 14:17] VITALS: BP 125/90; PULSE 60; RESP 16; O2SAT 100
== END 2023-01-10 14:18 | disposition home or self-care (01) ==
PROVIDERS: Emergency Provider Physician Assistant
DX: S20.219A Contusion of unspecified front wall of thorax, initial encounter (principal); T83.32XA Displacement of intrauterine contraceptive device, initial encounter; K42.9 Umbilical hernia without obstruction or gangrene; V49.40XA Driver injured in collision with unspecified motor vehicles in traffic accident, initial encounter; Y84.8 Other medical procedures as the cause of abnormal reaction of the patient, or of later complication, without mention of misadventure at the time of the procedure
CPT/HCPCS: 36415; 71260; 74177; 80048; 81025; 85025; 93005; 99284; A9270; Q9967

== ENCOUNTER 2024-02-26 15:22 | Outpatient (CLI) | payer OTHER, SELFPAY ==
--- NOTE | ~2024-02-26 | US_ITS ---
Pelvic ultrasound. Clinical History: Evaluate IUD Technique: Realtime transvaginal scanning of the pelvis was performed. Color flow Doppler and Doppler spectral analysis were performed. Findings: The uterus is retroverted. The endometrial stripe has a thickness of 5 mm. IUD in satisfac tory position. No focal mass is identified. The right ovary measures 2.5 x 2.8 x 2.7 cm. No significant right ovarian or adnexal mass is seen. The left ovary measures 3.0 x 1.7 x 2.2 cm. No significant left ovarian or adnexal mass is seen. There is trace free fluid in the cul de sac. Impression: IUD in satisfactory position. Trace free fluid in the pelvis. Reviewed, dictated and finalized at location . Impression: IUD in satisfactory position. Trace free fluid in the pelvis.
== END 2024-02-26 15:23 ==
LOC: GOSHIMG 15:35
PROVIDERS: PCP Obstetrics & Gynecology; Visit Provider Obstetrics & Gynecology
DX: Z30.431 Encounter for routine checking of intrauterine contraceptive device (principal)
CPT/HCPCS: 76830

== ENCOUNTER 2024-12-19 11:07 | Outpatient (CLI) | payer OTHER, SELFPAY ==
--- NOTE | ~2024-12-19 | MR_ITS ---
EXAMINATION: MR knee RT wo con DATE: 12/19/2024 11:44 INDICATION: Anterior right knee pain TECHNIQUE: Magnetic resonance imaging (MRI) of the right knee was performed without intravenous contr ast. Sequences included coronal PD-weighted FSE, coronal PD-weighted FS FSE, sagittal T2-weighted FS E, sagittal PD-weighted FS FSE and axial PD weighted fat saturated FSE. COMPARISON: None. FINDINGS: Medial compartment: Medial extrusion of the medial meniscal body. There is a tear of indeterminate morphology with focal amorphous region of increased signal along the inferior articular surface of the anterior to mid thir ds of the meniscal body. There is chondral swelling along the anterior half of the medial tibial plat eau with suggestion of some fissuring along the medial rim. Lateral compartment: Lateral meniscus is normal. Partial-thickness cartilage loss with smooth chondral surface and without degenerative subchondral changes along the medial side of the lateral tibial plateau along the shoul eliel the intercondylar eminence. Patellofemoral compartment: Articular cartilage is normal. Ligaments and tendons: Anterior and posterior cruciate ligaments are normal. The medial collateral ligament and fibular juan ateral ligament complex are normal. The extensor mechanism is normal. The visualized medial and later al hamstring tendons as well as the iliotibial band are normal. Fluid: Physiologic amount of fluid in the joint space. No loose osteochondral bodies identified. Osseous/other: Normal marrow signal. No fracture or pathologic marrow replacing process. There is focal edema in the infrapatellar fat pad along the inferolateral margin of the patella which could be due to a direct c ontusion or fat pad impingement syndrome. IMPRESSION: 1. Focal small tear of indeterminate morphology at the midpoint of the medial meniscal body. 2. 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 3. Focal fat pad edema along the inferolateral margin of the patella which could be due to injury and focal contusion or due to fat pad impingement syndrome. Reviewed, dictated and finalized at location B. IMPRESSION: 1. Focal small tear of indeterminate morphology at the midpoint of the medial m eniscal body. 2. 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 3. Focal fat pad edema along the inferolateral margin of the patella which coul d be due to injury and focal contusion or due to fat pad impingement syndrome.
== END 2024-12-19 11:08 | disposition home or self-care (01) ==
LOC: MICIMG 11:08
PROVIDERS: PCP Nurse Practitioner Family; Visit Provider Nurse Practitioner Family
DX: S83.241A Other tear of medial meniscus, current injury, right knee, initial encounter (principal); X58.XXXA Exposure to other specified factors, initial encounter
CPT/HCPCS: 73721

== ENCOUNTER 2025-08-06 00:32 | Day surgery (SDC) | payer OTHER, SELFPAY ==
--- NOTE | 2025-07-30 13:36 | SUR.PREOP ---
[facility] has started construction of its new state of the art ER which will open Spring 2026. With this, we anticipate parking may be a challenge for some our surgical patients and families. Parking spaces are limited but are available for all Surgical, obstetrics, and ER patients sharing this lot. If you arrive and find you are having a hard time finding a parking space, please note that we understand the challenges, please drive around the hospital and park near Hospital Entrance 1. When you enter this entrance, you can ask a volunteer to direct or take you back to the surgical waiting area to check in. We appreciate everyone?s understanding of these expected challenges while we build for your future. Report to the Outpatient Waiting Room, entrance under the green pavilion located off [address], at time __7AM__ on date _08/06/25__. Planned Procedure Time: _9AM__.? Time changes happen often and if your time is changed the preop area will call you the afternoon before. - You and your visitor will be asked to self-screen and do not enter if you have any COVID symptoms. Please call surgeon if you need to reschedule. - A mask is optional within the hospital at this time. Patients may have clear liquids (water, carbonated beverages, clear teas, apple juice) until 3 hours prior to surgery with a maximum of 20 ounces. - No food from midnight until time of surgery and no smoking, or chewing tobacco (or any form of nicotine). No chewing gum, candy or mints. Take only the following medications with a SIP of water on the morning of surgery: __none___ DO NOT STOP ANY OF YOUR OTHER PRESCRIPTION MEDICATIONS PRIOR TO SURGERY EXCEPT THE FOLLOWING Hold all vitamins and supplements for 3 days per anesthesiologist. Medications to discontinue per physician __n/a__ Date to take last dose of vitamins___08/02/25____ Please no make-up, nail croatian, hairspray, perfume, deodorant, or body powder the day of surgery.? No jewelry (including any body piercings) or valuables the day of surgery, leave them at home.? Please take a shower or bath the night before, or the morning of, surgery with an antibacterial soap.? Wear comfortable, loose fitting clothing.? - Jewelry must be removed prior to entering the operating room.? Rings and piercings that are not removed may be cut off. - The hospital will not accept responsibility for valuables.? - Please leave all valuables, including medications, at home the day of surgery. If you are going home after surgery, a licensed crew truck driver must drive you home.? - NO public transportation without another adult if you receive anesthesia. - We recommend that an adult stay with you for 24 hours following discharge. - We also recommend that you do not drive, make important decision, drink alcoholic beverages, or take any drugs that were not prescribed by your health care provider for at least 24 hours after your discharge time. Follow any additional instructions given to you from your surgeon. Telephone instructions given to _Conchita__and asked if any additional questions and then verbalized understanding. Patient advised to call surgeon office or pre surgery nurse liaison [phone] if any additional questions.
[2025-07-30 13:43] VITALS: BMI 34.5
[2025-08-06] VITALS (9 sets, daily range): BP systolic 98–119; BP diastolic 63–81; PULSE 78–93; RESP 14–18; TEMP 36.1–36.7; O2SAT 94–100
--- OUTSIDE RECORDS SUMMARY | 2025-08-06 00:34 | XMS_ITS | Clinical Summary ---
Author Organization [facility] Address [address] [place] [address] Phone Care Team Providers Care Job Trainer Name Role Phone Unavailable Primary Care Provider Unavailabl e Social History Tobacco Use Types Packs/Day Years Used Date Smoking Tobacco: Never Assessed Comments Unknown Sex and Gender Information Value Date Recorded Sex Assigned at Not on file Legal Sex Female 4:17 PM CDT Gender Identity Not on file Sexual Orientation Not on file Plan of Treatment Health Maintenance Due Date Last Done Comments DTAP/TDAP/TD VACCINES (1 - Tdap) 2015 HEPATITIS B VACCINES (1 of 3 - 19+ 3-dose series) 11/01 CERVICAL CANCER SCREENING 2017 HPV/Cotest (21-29) 2017 PAP SMEAR 2017 HPV VACCINES (1 - 3-dose SCDM series) 2023 INFLUENZA VACCINE (#1) 2025
--- OUTSIDE RECORDS SUMMARY | 2025-08-06 00:34 | XMS_ITS | Clinical Summary ---
Author Organization [facility] Address [address] [place] [address] Care Team Providers Care Alpine Patroller Name Role Phone Unavailable Primary Care Provider Unavailabl e Source Comments [facility],non-owned Affiliates and Associated Physician Practices is amultiple site organization consisting of ambulatory clinics and hospital sitesin [place], [place], [place] and [place]. This disclosure is being madepursuant to the Care Everywhere program and may not contain all information available regarding this patient. Last updated 18.[facility] Allergies No known active allergies Medications * Be aware that medications may not be up to date on this document. Alwaysverify current medications with the patient. Zafemy 150-35 MCG/24HR patch Apply 1 (one) patch to skin every 7 days 03/05/2024 Active naproxen (Naprosyn) 500 MG tablet Take 1 (one) tablet by mouth 2 times daily as needed for Pain 03/20/2024 Active methocarbamol (Robaxin) 500 MG tablet Take 1 (one) tablet by mouth every 8 hours as needed for Muscle Spasms 03/20/2024 Active medroxyPROGESTE Branden (Provera) 10 MG tablet Take 1 (one) tablet by mouth once daily 03/05/2024 Active meloxicam (Mobic) 15 MG tablet Take 1 (one) tablet by mouth once daily 30 tablet 3 04/29/2024 Active methylPREDNISol one (Medrol Dosepak) 4 MG tablet Take by mouth as directed 1 Each 04/29/2024 Active Active Problems No known active problems Social History Tobacco Use Types Packs/Day Years Used Date Smoking Tobacco: Never Smokeless Tobacco: Never Tobacco Cessation:Counseling Given: Not Answered Comments No Sex and Gender Information Value Date Recorded Sex Assigned at Not on file 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 Gender Identity Not on file Sexual Orientation Not on file Last Filed Vital Signs Vital Sign Reading Time Taken Comments Blood Pressure 128/78 01/06/2019 2:28 PM CDT Pulse 106 01/06/2019 2:28 PM CDT Temperature 37.6 C (99.7 F) 01/06/2019 2:28 PM CDT Respiratory Rate 16 01/06/2019 2:28 PM CDT Oxygen Saturation 98% 01/06/2019 2:28 PM CDT Inhaled Oxygen Concentration - - Weight 90.7 kg (200 lb) 01/06/2019 2:28 PM CDT Height 170.2 cm (5' 7) 01/06/2019 2:28 PM CDT Body Mass Index 31.32 01/06/2019 2:28 PM CDT Plan of Treatment Health Maintenance Due Date Last Done Comments HIV SCREENING 2011 HEPATITIS C SCREENING 11/22/2014 DTAP/TDAP/TD VACCINES (1 - Tdap) 2015 HEPATITIS B VACCINE (1 of 3 - 19+ 3-dose series) 2015 PAP SMEAR 2017 HPV VACCINE (1 - 3-dose SCDM series) 2023 DEPRESSION SCREENING 09/30/2024 COVID-19 VACCINE (1 - 2023-2 5 season) 2025 INFLUENZA VACCINE (#1) 2025 ZOSTER VACCINE (1 of 2) 2046 HIB VACCINE Aged Out No longer eligi ble based on patient's age to complete this topic MENINGOCOCCAL (Group B) VACC INE SHARED DECISION-MAKING Aged Out No longer eligibl e based on patient's age to complete this topic MENINGOCOCCAL GROUPS A/C/Y/W VACCINE Aged Out No longer eligible b ased on patient's age to complete this topic PNEUMOCOCCAL VACCINE Aged Out No long er eligible based on patient's age to complete this topic Insurance [facility] [place] [id number] [facility]
--- NOTE | 2025-08-06 07:34 | WPDHPUPDATE1 ---
History and Physical Update Update Date/Time: 08/06/25 07:34 History and Physical has been reviewed, including an updated exam of the patient. There are NO changes in the patient's condition. Risks, benefits, and alternatives have been discussed and questions answered. Patient agrees to proceed with procedure.
[2025-08-06] MEDS: ACETAMINOPHEN 500 MG TABLET 1000 MG PO (08:30)
[2025-08-06] MEDS: CELECOXIB 200 MG CAPSULE PO (08:30)
--- NOTE | 2025-08-06 09:02 | WPDANESEPPF ---
Anes - Initial Pre Proc Eval Procedure: Operation Date: 08/06/25 09:00 Proposed Procedures p Right Knee Arthroscopy, Proceed As Indicated - Dino Manuel MD Date/Time: 08/06/25 09:02 Surgeon: Dino Manuel MD Pre Op Diagnosis: right knee medial meniscal tear Patient Data Age: 29 Gender: F Height: 1.7 m Weight: 106.7 kg Last Vital Signs Temp 36.7 C 08/06/25 08:35 Pulse 84 08/06/25 08:35 Resp 16 08/06/25 08:35 BP 98/74 L 08/06/25 08:35 Pulse Ox 100 08/06/25 08:35 O2 Del Method Room Air 08/06/25 08:35 Allergies Allergy/AdvReac Type Severity Reaction Status Date / Time cortisone AdvReac Mild itching Verified 08/06/25 08:33 Home Medications ?Medication ?Instructions ?Recorded ?Confirmed ?Type levonorgestrel (Mirena) 1 device intrauterine ONCE 04/03/24 08/05/25 History ascorbate calcium (vitamin C) 814 1 mg PO DAILY 07/30/25 08/05/25 History mg/gram oral powder hydrocodone 5 mg-acetaminophen 325 1 tablet PO ONCE PRN pain #20 tabs 08/06/25 Rx mg tablet Patient hx anesthesia problems: none Family hx anesthesia problems: none Results Review: All pre-operative results and documents have been reviewed as part of the pre-operative evaluation. [facility] Past Medical History Medical History Tear of meniscus of right knee Impingement syndrome involving patellar fat pad of right knee Chondromalacia, right knee Right knee injury Right knee pain (normal spontaneous vaginal delivery) (normal spontaneous vaginal delivery) 2017 Nausea and vomiting during Surgical History Surgical History Encounter for insertion of ParaGard IUD february of 2021 Encounter for insertion of Mirena IUD No pertinent past surgical history Family History Family History Father Hypertension Diabetes mellitus Social History Social History Smoking status: Never smoker Second hand tobacco smoke exposure: No Alcohol intake: current Drinks per week: 3 Alcohol use details: socially Substance use: never Substance use type: marijuana Other substance usage details: edibles for sleep Current Housing: Decline to Answer Concerned About Future Housing: Decline to Answer Difficulty Paying Gas/Electric Bills: Decline to Answer Difficulty Paying for Meds: Decline to Answer Currently Unemployed: Decline to Answer Education: Decline to Answer Difficulty w/ Childcare or Family Care: Decline to Answer Living arrangements: with family Additional living arrangements comments: brother / kids Occupation/Education: occupation 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 Gender identity (if verbalized by the patient): Female Sexual Orientation (if Verbalized by the Patient): Straight or Heterosexual Spiritual care concerns: No Anes - Eval Final PreProcedure Day of Procedure 08/06/25 09:02 Patient weight: obese Heart: regular rate and rhythm Lungs: clear to auscultation Airway: Mallampati scale class II Neurological: alert and oriented Last oral intake: >/= 8 hours ASA classification: II Emergent: no Anesthetic plan: proceed Anesthesia type and monitoring: general LMA and standard monitoring Results Review: All pre-operative results and documents have been reviewed as part of the pre-operative evaluation. Informed Consent: The patient's anesthetic plan and its attendant risks and benefits were discussed with the patient/family/POA. Questions were solicited and answers provided to the satisfaction of the patient/family/POA.
[2025-08-06] MEDS: ceFAZolin 2 GM in SODIUM CHLORIDE 0.9% IV 50 ML 100 ML IVPB (09:29)
[2025-08-06] MEDS: LACTATED RINGERS 1,000 ML 30 ML IV CONT (10:45)
--- NOTE | 2025-08-06 10:52 | P.OP_ITS ---
Procedure Note - Detailed Date of Procedure 08/06/25 Pre-op Diagnosis right knee medial meniscal tear, Post-op Diagnosis Other (RIGHT LATERAL MENISCUS TEAR, OSTEOCHONDRAL DEFECT MEDIAL PLATEAU) Procedure Performed RIGHT KNEE SCOPE Surgeon Dino Manuel MD Anesthesia General Description of Procedure PATIENT WAS TAKEN TO THE OR. THE RIGHT LEG WAS PREPPED AND DRAPED STERILE. TROCARS WERE PLACED IN THE USUAL FASHION. CAMERA WAS INTRODUCED. THERE WAS MINIMAL CHONDROMALACIA TO THE PATELLA FEMORAL JOINT. THERE WAS A LOT OF SYNOVITIS IN ALL COMPARTMENTS. THE MEDIAL COMPARTMENT SHOWED CHONDROMALACIA TO THE MEDIAL PLATEAU. FURTHER EVALUATION SHOWED ABOUT 1 CM FULL THICKNESS DEFECT OF THE CARTILAGE AT THE ANTERIOR TO MID BODY JUNCTION AT THE LEVEL OF THE MEDIAL MENISCUS. A SHAVER WAS USED TO PREFORM A CHONDROPLASTY. THERE WAS NO TEAR TO THE MEDIAL MENISCUS TEAR. USING A MIRIAN PIC AN ABRASION ARTHROPLASTY/MICRO FRACTURE WAS PREFORMED. THERE WAS GOOD BLEEDING BONE FROM THE MICRO FRACTURE REGION. THE ACL WAS INTACT. THE LATERAL MENISCUS WAS TORN NEAR THE ANTERIOR HORN. THE TEAR WAS RESECTED. THE LATERAL COMPARTMENT HAD MINIMAL CHONDROMALACIA AT THE LATERAL PLATEAU. CHONDROPLASTY WAS PREFORMED. A SYNOVECTOMY WAS PREFORMED WELL. THE PATELLO FEMORAL JOINT UNDERWENT MINIMAL CHONDROPLASTY. S YNOVECTOMY WAS PREFORMED IN THE SUPERIOR MEDIAL COMPARTMENT. THE WOUNDS WERE APPROXIMATED WITH 4.0 NYLON. STERILE DRESSING WAS APPLIED. PATIENT WAS EXTUBATED. Estimated Blood Loss 5 Complications No immediate complications Condition Stable Disposition PACU
[2025-08-06] MEDS: fentaNYL CITRATE INJ (*CRX) 100 MCG/2 ML VIAL 25 MCG IV PUSH ×4 (11:00→11:20)
[2025-08-06] MEDS: ONDANSETRON INJ 4 MG/2 ML VIAL IV PUSH (11:14)
[2025-08-06] MEDS: oxyCODONE HCL (*CRX) 5 MG TAB IR PO (12:05)
[2025-08-06] MEDS: SCOPOLAMINE 1 MG PATCH 1 PATCH TRANSDERM (12:50)
== END 2025-08-06 13:15 | disposition home or self-care (01) ==
PROVIDERS: Visit Provider Orthopaedic Surgery
PROC: (CPT 29870; principal; 2025-08-06 09:00)
DX: S83.281A Other tear of lateral meniscus, current injury, right knee, initial encounter (principal); M94.261 Chondromalacia, right knee; M65.861 Other synovitis and tenosynovitis, right lower leg; X50.0XXA Overexertion from strenuous movement or load, initial encounter; F12.90 Cannabis use, unspecified, uncomplicated; E66.9 Obesity, unspecified; Z68.36 Body mass index [BMI] 36.0-36.9, adult; Z79.891 Long term (current) use of opiate analgesic
CPT/HCPCS: 29881; J0690; A9270; J1100; J2003; J2250; J2405; J2704; J3010; J7120